=== PATIENT | male | born 1960 | race Caucasian/White ===

== ENCOUNTER 2017-03-26 23:49 | Emergency (ER) | payer OTHER ==
[~2017-03-26] VITALS: Ht 180.3 cm; Wt 132.1 kg
[~2017-03-26 23:49] MED LIST: ATARAX,VISTARIL25 MG PO; ATIVAN1 MG PO; ATORVASTATIN CA40 MG PO; BENADRYL50 MG PO; CIPRO500 MG PO; FLOMAX0.4 MG PO; HYDROCODON-ACE1 EAC7 PO; HYDROMORPHONE HC2 MG PO; LISINOPRIL10 MG PO; METOPROLOL SUCC50 MG PO; NOHOMEMEDS; NORCO 5/3251 TABLET PO; ONDANSETRON HCL4 MG PO; OXAYDO5 MG PO; OXYCODONE HCL10 MG PO; OXYCODONE HCL20 M1 PO; OXYCONTIN40 MG PO; PERCOCET 5/31 TABLET PO; PROTONIX20 MG PO; PYRIDIUM200 MG PO; ROXICODONE5 MG PO; SKELAXIN800 MG PO; TAMSULOSIN HCL0.4 MG PO; VANTIN200 MG PO; ZESTRIL10 MG PO; ZOFRAN ODT4 MG PO; ZOFRAN ODT8 MG PO; ZOFRAN4 MG PO
[2017-03-27] MEDS ORDERED: ATIVAN0.5 MG PO (00:05)
[2017-03-27 00:39] VITALS: BP 130/72
== END 2017-03-27 00:48 | disposition home or self-care (01) ==
LOC: EME 23:49
DX: F41.9 Anxiety disorder, unspecified (principal); I10 Essential (primary) hypertension; J45.909 Unspecified asthma, uncomplicated; K21.9 Gastro-esophageal reflux disease without esophagitis; F31.9 Bipolar disorder, unspecified; B19.20 Unspecified viral hepatitis C without hepatic coma; Z87.891 Personal history of nicotine dependence
CPT/HCPCS: 99281; 99283

== ENCOUNTER 2017-04-07 20:51 | Emergency (ER) | payer OTHER ==
[~2017-04-07] VITALS: Ht 180.3 cm; Wt 127.2 kg
[~2017-04-07 20:51] MED LIST changes: +ATIVAN0.5 MG PO
[2017-04-07 21:27] LABS: HEMATOCRIT 45.3 % (38.0-50.0); MCH 31.2 PG (29.0-34.0); MCHC 33.8 G/DL (30.0-36.0); MCV 92.4 FL (86-99); MEAN PLAT.VOLUME 12.2 uM^3 (9.0-12.4); PLATELET COUNT 90 K/uL (156-360); RBC DIS.WIDTH-CV 13.5 % (11.8-14.6); RBC DIS.WIDTH-SD 45.8 % (39-53); WHITE BLOOD COUNT 4.6 K/uL (4.1-10.2)
[2017-04-07 21:34] LABS: CHLORIDE 107 mEq/L (99-109); POTASSIUM 3.7 mEq/L (3.7-5.4); SODIUM 141 mEq/L (136-147)
[2017-04-07 21:36] LABS: GLUCOSE 111 mg/dL (70-99)
[2017-04-07 21:37] LABS: ANION GAP 9 MEQ/L (2-14)
[2017-04-07 21:40] LABS: GFR ESTIMATE (CALCULATED) > 59 mL/min/; UREA NITROGEN (BUN) 12 mg/dL (9-23)
[2017-04-08 00:21] LABS: TROP-I INTERPRETATION NEGATIVE; TROPONIN-I < 0.01 ng/mL (0.0-0.30)
[2017-04-08] MEDS ORDERED: ATIVAN0.5 MG PO (00:45)
[2017-04-08 00:56] VITALS: BP 139/78
== END 2017-04-08 00:57 | disposition home or self-care (01) ==
LOC: EME 20:51
DX: F41.9 Anxiety disorder, unspecified (principal); I10 Essential (primary) hypertension; J45.909 Unspecified asthma, uncomplicated; K21.9 Gastro-esophageal reflux disease without esophagitis; F32.9 Major depressive disorder, single episode, unspecified; B19.20 Unspecified viral hepatitis C without hepatic coma; K74.60 Unspecified cirrhosis of liver; Z87.442 Personal history of urinary calculi; Z87.891 Personal history of nicotine dependence
CPT/HCPCS: 71020; 80048; 84484; 85027; 93005; 99281; 99284

== ENCOUNTER 2017-05-12 20:02 | Emergency (ER) | payer OTHER ==
[~2017-05-12] VITALS: Ht 180.3 cm; Wt 113.6 kg
[2017-05-12 20:45] LABS: HEMATOCRIT 42.3 % (38.0-50.0); MCH 31.8 PG (29.0-34.0); MCHC 33.8 G/DL (30.0-36.0); MCV 94.2 FL (86-99); MEAN PLAT.VOLUME 12.2 uM^3 (9.0-12.4); PLATELET COUNT 102 K/uL (156-360); RBC DIS.WIDTH-CV 14.5 % (11.8-14.6); RBC DIS.WIDTH-SD 50.4 % (39-53); RED BLOOD COUNT 4.49 M/uL (4.00-5.50); WHITE BLOOD COUNT 5.2 K/uL (4.1-10.2)
[2017-05-12 20:54] LABS: CHLORIDE 108 mEq/L (99-109); POTASSIUM 4.2 mEq/L (3.7-5.4); SODIUM 142 mEq/L (136-147)
[2017-05-12 20:57] LABS: ANION GAP 8 MEQ/L (2-14)
[2017-05-12 20:59] LABS: GFR ESTIMATE (CALCULATED) > 59 mL/min/
[2017-05-12 21:00] LABS: UREA NITROGEN (BUN) 16 mg/dL (9-23)
[2017-05-12 21:07] LABS: TROP-I INTERPRETATION NEGATIVE; TROPONIN-I < 0.01 ng/mL (0.0-0.30)
[2017-05-12 21:12] LABS: GLUCOSE 117 mg/dL (70-99)
[2017-05-12] MEDS ORDERED: PREDNISONE50 MG PO (22:21)
[2017-05-12] MEDS ORDERED: VENTOLIN HFA18 GM IH (22:21)
[2017-05-12 22:33] VITALS: BP 125/77
== END 2017-05-12 22:34 | disposition home or self-care (01) ==
LOC: EME 20:02
DX: J45.909 Unspecified asthma, uncomplicated (principal); I10 Essential (primary) hypertension; K21.9 Gastro-esophageal reflux disease without esophagitis; B19.20 Unspecified viral hepatitis C without hepatic coma; K74.60 Unspecified cirrhosis of liver; F41.9 Anxiety disorder, unspecified; F32.9 Major depressive disorder, single episode, unspecified; Z87.891 Personal history of nicotine dependence
CPT/HCPCS: 71020; 80048; 83880; 84484; 85027; 93005; 94640; 99281; 99285; J2930

== ENCOUNTER 2017-05-20 11:04 | Emergency (ER) | payer OTHER ==
[~2017-05-20] VITALS: Ht 180.3 cm; Wt 136.7 kg
[~2017-05-20 11:04] MED LIST changes: +PREDNISONE50 MG PO; +VENTOLIN HFA18 GM IH
[2017-05-20 11:33] LABS: ADD MIUA? YES; BILIRUBIN NEGATIVE; BLOOD LARGE; COLOR AMBER ((YELLOW)); GLUCOSE (STRIP) NEGATIVE; KETONES NEGATIVE; LEUKOCYTES TRACE; NITRITE NEGATIVE; PROTEIN (STRIP) 100; SPECIFIC GRAVITY 1.019 (1.000-1.030); UROBILINOGEN 0.2 MG/DL (0.2-1.0)
[2017-05-20 11:45] LABS: BACTERIA RARE /HPF; BUDDING YEAST 3+; CALCIUM OXALATE CRYSTALS 2+ /HPF; EPITHELIAL CELLS NONE SEEN /HPF; HYALINE CASTS 15-20 /LPF; MUCUS 4+ /LPF; RED BLOOD CELLS TNTC /HPF (0-5); UCUL ADDED? YES; WHITE BLOOD CELLS 30-40 /HPF (0-5)
[2017-05-20 12:31] LABS: HEMATOCRIT 40.9 % (38.0-50.0); MCH 31.9 PG (29.0-34.0); MCV 93.8 FL (86-99); RBC DIS.WIDTH-CV 15.1 % (11.8-14.6); RBC DIS.WIDTH-SD 52.8 % (39-53); RED BLOOD COUNT 4.36 M/uL (4.00-5.50); WHITE BLOOD COUNT 5.8 K/uL (4.1-10.2)
[2017-05-20 12:46] LABS: CHLORIDE 106 mEq/L (99-109); POTASSIUM 4.1 mEq/L (3.7-5.4); SODIUM 139 mEq/L (136-147)
[2017-05-20 12:47] LABS: GLUCOSE 97 mg/dL (70-99)
[2017-05-20 12:49] LABS: ANION GAP 8 MEQ/L (2-14)
[2017-05-20 12:51] LABS: GFR ESTIMATE (CALCULATED) > 59 mL/min/
[2017-05-20 12:52] LABS: UREA NITROGEN (BUN) 13 mg/dL (9-23)
[2017-05-20 13:29] LABS: MEAN PLAT.VOLUME 12.4 uM^3 (9.0-12.4); PLAT.SUFFICIENCY DECREASED
[2017-05-20 13:36] LABS: PLATELET COUNT 53 K/uL (156-360)
[2017-05-20] MEDS ORDERED: ZOFRAN ODT4 MG PO (14:12)
[2017-05-20] MEDS ORDERED: FLOMAX0.4 MG PO (14:12)
[2017-05-20] MEDS ORDERED: PERCOCET 5/31 TABLET PO (14:12)
[2017-05-20] MEDS ORDERED: LISINOPRIL20 MG PO (14:22)
[2017-05-20] MEDS ORDERED: ROXICODONE5 MG PO (14:34)
[2017-05-20 14:35] VITALS: BP 115/67
== END 2017-05-20 14:35 | disposition home or self-care (01) ==
LOC: EME 11:04
DX: N13.2 Hydronephrosis with renal and ureteral calculous obstruction (principal); R31.9 Hematuria, unspecified; R16.1 Splenomegaly, not elsewhere classified; K76.6 Portal hypertension; K74.60 Unspecified cirrhosis of liver; I10 Essential (primary) hypertension; Z87.442 Personal history of urinary calculi; Z87.891 Personal history of nicotine dependence
CPT/HCPCS: 74176; 80048; 81003; 85027; 87086; 99281; 99284; J1885; J7030

== ENCOUNTER → 2017-06-22 | Outpatient (CLI) | payer OTHER ==
[~2017-06-22] VITALS: Ht 180.3 cm; Wt 131.5 kg
[~2017-06-22] MED LIST changes: +ASPIRIN81 M2 PO; +CYMBALTA20 MG PO; +LISINOPRIL20 MG PO
== END | disposition home or self-care (01) ==
LOC: AMB 07:30
DX: N20.2 Calculus of kidney with calculus of ureter (principal); Z87.442 Personal history of urinary calculi; B19.20 Unspecified viral hepatitis C without hepatic coma; K74.60 Unspecified cirrhosis of liver; E66.01 Morbid (severe) obesity due to excess calories; I10 Essential (primary) hypertension; E78.5 Hyperlipidemia, unspecified; Z87.891 Personal history of nicotine dependence; Z79.82 Long term (current) use of aspirin; Z88.6 Allergy status to analgesic agent
CPT/HCPCS: 74010; J0330; J1100; J2250; J2405; J3010

== ENCOUNTER 2017-07-05 07:43 | Emergency (ER) | payer OTHER ==
[~2017-07-05] VITALS: Ht 180.3 cm; Wt 135.2 kg
[2017-07-05 08:27] LABS: EOSINOPHIL (%) 4.3 % (0-5); EOSINOPHIL COUNT 0.2 K/uL (0-0.3); HEMATOCRIT 45.8 % (38.0-50.0); IMMATURE GRANULOCYTE (%) 0.2 % (0.0-0.7); INSTRUMENT ABS NEUTROPHIL CT 2.6 K/uL; LYMPHOCYTE COUNT 1.1 K/uL (1.0-2.8); MCH 31.7 PG (29.0-34.0); MCHC 34.1 G/DL (30.0-36.0); MCV 93.1 FL (86-99); MEAN PLAT.VOLUME 12.2 uM^3 (9.0-12.4); MONOCYTE (%) 15.8 % (3-12); MONOCYTE COUNT 0.7 K/uL (0-0.8); NEUTROPHIL (%) 55.5 % (45-76); NEUTROPHIL COUNT 2.6 K/uL (1.8-6.4); PLATELET COUNT 94 K/uL (156-360); RBC DIS.WIDTH-SD 48.4 % (39-53); RED BLOOD COUNT 4.92 M/uL (4.00-5.50); WHITE BLOOD COUNT 4.7 K/uL (4.1-10.2)
[2017-07-05 08:55] LABS: CHLORIDE 109 mEq/L (99-109); POTASSIUM 3.9 mEq/L (3.7-5.4); SODIUM 142 mEq/L (136-147)
[2017-07-05 08:56] LABS: GLUCOSE 95 mg/dL (70-99)
[2017-07-05 08:58] LABS: ANION GAP 9 MEQ/L (2-14)
[2017-07-05 09:01] LABS: UREA NITROGEN (BUN) 10 mg/dL (9-23)
[2017-07-05 09:09] LABS: ADD MIUA? YES; BILIRUBIN NEGATIVE; BLOOD LARGE; COLOR YELLOW ((YELLOW)); GLUCOSE (STRIP) NEGATIVE; KETONES NEGATIVE; LEUKOCYTES TRACE; NITRITE NEGATIVE; PROTEIN (STRIP) 30; UROBILINOGEN 0.2 MG/DL (0.2-1.0)
[2017-07-05 09:34] LABS: BACTERIA NONE SEEN /HPF; CALCIUM OXALATE CRYSTALS 3+ /HPF; EPITHELIAL CELLS NONE SEEN /HPF; HYALINE CASTS 0-5 /LPF; MUCUS 4+ /LPF; RED BLOOD CELLS TNTC /HPF (0-5); UCUL ADDED? YES; WHITE BLOOD CELLS 20-30 /HPF (0-5)
[2017-07-05 09:35] LABS: GFR ESTIMATE (CALCULATED) > 59 mL/min/
[2017-07-05] MEDS ORDERED: ZOFRAN4 MG PO (10:12)
[2017-07-05] MEDS ORDERED: KEFLEX500 MG PO (10:12)
[2017-07-05] MEDS ORDERED: FLOMAX0.4 MG PO (10:12)
[2017-07-05 10:44] VITALS: BP 126/66
== END 2017-07-05 10:45 | disposition home or self-care (01) ==
LOC: EME 07:43
PROVIDERS: Emergency Medicine
DX: N20.0 Calculus of kidney (principal); N39.0 Urinary tract infection, site not specified; Z87.442 Personal history of urinary calculi; K74.60 Unspecified cirrhosis of liver; B19.20 Unspecified viral hepatitis C without hepatic coma; I25.2 Old myocardial infarction; J45.909 Unspecified asthma, uncomplicated; K21.9 Gastro-esophageal reflux disease without esophagitis; Z87.891 Personal history of nicotine dependence
CPT/HCPCS: 74176; 80048; 81003; 85025; 87086; 99281; 99284; J1885; J2270; J2405; J7030

== ENCOUNTER → 2018-04-08 | Outpatient (CLI) | payer OTHER ==
[~2018-04-08] VITALS: Ht 180.3 cm; Wt 131.5 kg
[~2018-04-08] MED LIST changes: +BUSPAR10 MG PO; +CARDIZEM60 MG PO; +KEFLEX500 MG PO
== END | disposition home or self-care (01) ==
LOC: AMB 09:30
DX: I85.00 Esophageal varices without bleeding (principal); K22.0 Achalasia of cardia; B18.2 Chronic viral hepatitis C; K74.69 Other cirrhosis of liver; K21.0 Gastro-esophageal reflux disease with esophagitis; I10 Essential (primary) hypertension; M19.90 Unspecified osteoarthritis, unspecified site; E66.9 Obesity, unspecified; Z87.891 Personal history of nicotine dependence; Z83.3 Family history of diabetes mellitus; Z68.42 Body mass index [BMI] 45.0-49.9, adult
CPT/HCPCS: J3010